=== PATIENT | female | born 1990 | race Caucasian/White ===

== ENCOUNTER → 2023-05-08 | Outpatient (CLI) | payer BC, OTHER ==
--- NOTE | 2023-05-08 07:51 | US ---
EXAMINATION TYPE: US groin RT DATE OF EXAM: 05/08/2023 COMPARISON: NONE CLINICAL INDICATION: Female, 32 years old with history of R102 pain; patient states possible small he rnia felt by physician years ago, "divot" sensation felt by patient, no bulging. TECHNIQUE: Rt groin scan FINDINGS/IMPRESSION: No focal abnormality identified within the right groin. Valsalva maneuver was performed. No visualize d hernia. No lymphadenopathy, solid or cystic mass identified.
--- NOTE | 2023-05-08 07:54 | US ---
EXAMINATION TYPE: US pelvic complete DATE OF EXAM: 05/08/2023 COMPARISON: NONE CLINICAL INDICATION: Female, 32 years old with history of R10.2 PELVIS PERINEAL PAIN; rlq pain, h/o 3 c-sections, possible hernia diagnosed by OBGYN years ago TECHNIQUE: TA. Transabdominal sonographic images of the pelvis were acquired. Date of LMP: unknown EXAM MEASUREMENTS: Uterus: 8.6 x 6.4 x 5.5 cm Endometrial Stripe: 1.3 cm Right Ovary: 3.0 x 2.3 x 2.0 cm Left Ovary: 2.9 x 2.2 x 2.0 cm 1. Uterus: Retroflexed, wnl 2. Endometrium: wnl 3. Right Ovary: wnl 4. Left Ovary: wnl 5. Bilateral Adnexa: wnl 6. Posterior cul-de-sac: wnl Unremarkable appearance of the uterus and endometrium. Both ovaries appear within normal warrants. No free fluid. IMPRESSION: Unremarkable transabdominal pelvic ultrasound.
== END | disposition home or self-care (01) ==
LOC: RADUSWWP 06:54
PROVIDERS: ATTEND Family Medicine
DX: R10.2 Pelvic and perineal pain (principal)
CPT/HCPCS: 76856